=== PATIENT | female | born 1990 | race Caucasian/White ===

== ENCOUNTER 2018-07-18 15:47 | Emergency (ER) | payer SELFPAY ==
[2018-07-18 16:39] VITALS: BMI 25.4
[2018-07-18] MEDS ORDERED: Lactated Ringer's 1,000 ML IV ONE (16:44)
--- NOTE | 2018-07-18 18:57 | US ---
Date of service: 07/18/2018 HISTORY: H/O gallstones, epigastric pain, patient COMPARISON: None available TECHNIQUE: Sonographic evaluation of the right upper quadrant of the abdomen. FINDINGS: LIVER: Measures 13.8 cm. No focal hepatic mass identified. The main portal vein appears patent with normal directional flow. No intrahepatic bile duct dilatation. GALLBLADDER: Gallstones. No gallbladder wall thickening or pericholecystic edema. Negative sonographic Avila's sign as assessed by the care aide. COMMON BILE DUCT: Measures 3 mm. PANCREAS: Not well-visualized. RIGHT KIDNEY: Measures approximately 10.7 x 4.3 x 4.4 cm. Mild right-sided hydronephrosis. No obstructing calculus identified. AORTA: Limited visualization appears grossly unremarkable. IVC: Limited visualization appears grossly unremarkable. OTHER FINDINGS: None . IMPRESSION: Cholelithiasis. Mild right-sided hydronephrosis.
--- NOTE | 2018-07-18 19:06 | US ---
Indication: No care, LMP 02/13? Comparison: None available. Technique: Real-time ultrasound was performed through the pelvis. Findings: There is a single living fetus in cephalic presentation. Amniotic fluid volume measures approximately 14.5 cm, within normal limits. Posterior placenta. The placenta is not previa. There are no adnexal masses or cysts evident. Cervix length measures approximately 3.0 cm. Limited visualized anatomy appears grossly unremarkable. The study was performed for emergent evaluation, and the whole anatomic survey of the fetus was not performed. This should be performed on an outpatient elective basis as clinically warranted. Measurements and calculations: Fetus has a composite sonographic age of 32 weeks 4 days. This calculation is based on the biparietal diameter, head circumference, abdominal circumference, and femur length. Estimated heart rate 135.6 beats per min. Estimated weight 1854 g. Biophysical profile: movements 2/2 breathing 2/2 tone 2/2 Amniotic fluid 2/2 Total score impression: 04/05 Impression: Single living fetus with a composite sonographic age of 32 weeks 4 days. Estimated heart rate 135.6 beats per min. Biophysical profile of 8 out of 8.
[2018-07-19 01:05] VITALS: BP 114/66; PULSE 114; RESP 18; TEMP 97.6; O2SAT 99
== END 2018-07-18 20:33 | disposition left against medical advice (07) ==
LOC: C.EROB 15:47
DX: O26.893 Other specified pregnancy related conditions, third trimester (principal); R10.13 Epigastric pain; Z3A.32 32 weeks gestation of pregnancy